=== PATIENT | male | born 1975 | race Caucasian/White ===

== ENCOUNTER 2016-05-18 10:48 | Inpatient (IN) | payer MEDICAID ==
[~2016-05-18] VITALS: Ht 157.5 cm; Wt 62.0 kg
[2016-05-18 10:55] VITALS: Ht 157.5 cm; Wt 62.0 kg
[2016-05-18] MEDS ORDERED: METF1000 PO (11:12)
[2016-05-18] MEDS ORDERED: FUROSEMIDE 20 MG INJ IV ONE (11:30)
--- NOTE | 2016-05-18 12:14 | RADRPT ---
PROCEDURE: XR Chest. CLINICAL INDICATION: Abdominal pain TECHNIQUE: Chest AP portable. COMPARISON: No comparison available. FINDINGS: The mediastinal structures are unremarkable. The heart is normal in size and configuration. The pu lmonary vascularity is normal. The lung vigil are unremarkable. No consolidation is identified. The pleural spaces are unremarkable. The axial skeleton is unremarkable. IMPRESSION: No active intrathoracic disease. RPTAT: HGDB .Yeyo Starr MD, MD Date Time Electronically viewed and signed by .Yeyo Starr MD, MD on 05/18/2016 12:13 .B/
[2016-05-18 12:28] LABS: BASOPHILS % 0.5 % (0.0-2.0); CONDITION 1; EOSINOPHILS # 0.1 10^3/ul (0.0-0.5); HEMATOCRIT 30.8 % (42.0-52.0); HEMOGLOBIN 10.5 g/dl (14.0-18.0); LYMPHOCYTES # 1.3 10^3/ul (0.8-2.9); LYMPHOCYTES % 16.8 % (15.0-51.0); MEAN CORPUSCULAR HEMOGLOBIN 29.1 pg (29.0-33.0); MEAN CORPUSCULAR HGB CONC 34.2 g/dl (32.0-37.0); MEAN CORPUSCULAR VOLUME 85.2 fl (82.0-101.0); MEAN PLATELET VOLUME 10.2 fl (7.4-10.4); MONOCYTE # 0.4 10^3/ul (0.3-0.9); MONOCYTES % 4.9 % (0.0-11.0); NEUTROPHIL # 6.1 10^3/ul (1.6-7.5); NEUTROPHILS % 76.8 % (39.0-77.0); PLATELET COUNT 242 10^3/UL (140-440); RED BLOOD COUNT 3.61 10^6/ul (4.70-6.10); RED CELL DISTRIBUTION WIDTH 13.1 % (11.5-14.5); UNCORRECTED WBC 7.9 10^3/ul (4.8-10.8); WHITE BLOOD COUNT 7.9 10^3/ul (4.8-10.8)
[2016-05-18 12:34] LABS: ALBUMIN 2.9 g/dl (3.3-4.9)
[2016-05-18 12:35] LABS: CHLORIDE 105 mmol/L (97-110); POTASSIUM 5.4 mmol/L (3.5-5.1); SODIUM 140 mmol/L (135-144)
[2016-05-18 12:37] LABS: ALKALINE PHOSPHATASE 108 IU/L (42-121); ANION GAP 13 (8-16); ASPARTATE AMINO TRANSFERASE 25 IU/L (15-46); CARBON DIOXIDE 27 mmol/L (21-31); CREATININE 0.77 mg/dl (0.61-1.24); TOTAL PROTEIN 6.5 g/dl (6.1-8.1)
[2016-05-18 12:38] LABS: ALANINE AMINOTRANSFERASE 30 IU/L (13-69); BLOOD UREA NITROGEN 28 mg/dl (7-20); CALCIUM 9.4 mg/dl (8.4-10.2); GLUCOSE 144 mg/dl (70-220)
[2016-05-18] MEDS ORDERED: ALBUTEROL 0.5% (NEB) 2.5 MG/0.5 ML AMP INH STA (12:45)
[2016-05-18 12:47] LABS: B-TYPE NATRIURETIC PEPTIDE 276 PG/ML (0-125)
[2016-05-18 12:50] LABS: TROPONIN-I < 0.012 ng/ml (0.00-0.12)
[2016-05-18 13:17] VITALS: PULSE 89; TEMP 98.1
[2016-05-18 13:23] LABS: ADD UMIC YES; URINE BILIRUBIN (Dip) NEGATIVE (NEGATIVE); URINE BLOOD (Dip) 2+ (NEGATIVE); URINE COLOR LT. YELLOW (YELLOW); URINE GLUCOSE (Dip) NEGATIVE (NEGATIVE); URINE KETONES (Dip) NEGATIVE (NEGATIVE); URINE LEUKOCYTE ESTERASE (Dip) NEGATIVE (NEGATIVE); URINE NITRITE (Dip) NEGATIVE (NEGATIVE); URINE TOTAL PROTEIN (Dip) 2+ (NEGATIVE); URINE UROBILINOGEN (Dip) 0.2 E.U./dL (0.1-1.0)
--- NOTE | 2016-05-18 13:33 | ERA ---
ER Documentation Chief Complaint Date/Time DATE: 05/18/16 TIME: 13:22 Chief Complaint sob, swelling legs, fatigue x 1 week HPI 41-year-old man referred here by PMD for recent bilateral lower extremity swelling, weakness, dyspnea on exertion and shortness of breath, and decreased urine output. Patient states his new symptoms have been present for about 20 days and complains of about 1 year of gradually decreasing vision. He has a history of poorly controlled diabetes mellitus and denies hypertension. He denies fevers or chills, no new medication, no chest pain, no vomiting or diarrhea, no headache or blurry vision. Patient denies recent travel or sick contacts. ROS All systems reviewed and are negative except as per history of present illness. Medications Home Meds Reported Medications Metformin Hcl* (Metformin Hcl*) 1,000 Mg Tablet, 1000 MG PO WITH BREAKFAST DINNE , #30 TAB 05/18/16 Allergies Allergies: Coded Allergies: No Known Allergy (Unverified , 05/18/16) PMhx/Soc Diabetes mellitus Medical and Surgical Hx: pt denies Surgical Hx History of Surgery: No Hx Neurological Disorder: No Hx Respiratory Disorders: Yes (SOB) Hx Cardiac Disorders: Yes (HTN) Hx Miscellaneous Medical Probl: Yes (DM) Hx Alcohol Use: Yes (Former drinker ) Hx Substance Use: No Hx Tobacco Use: No Smoking Status: Never smoker FmHx Diabetes mellitus and renal disease Family History: diabetes Physical Exam Vitals Vital Signs Date Time Temp Pulse Resp B/P Pulse Ox O2 Delivery O2 Flow Rate FiO2 05/18/16 13:17 98.1 89 18 170/78 100 Room Air 05/18/16 12:53 73 20 99 21 05/18/16 11:15 98.6 74 16 157/75 100 Room Air 05/18/16 10:55 98.1 83 18 168/84 97 Physical Exam GENERAL: Well-developed, well-nourished, well-hydrated, in no apparent distress , looks nontoxic in appearance HEENT: Moist mucous membranes, pink conjunctiva, no cervical spine tenderness or step-off deformities, no goiter, no jaundice or icterus, extraocular movements intact without pain. No submandibular induration, and no pharyngeal erythema NEURO: Alert and oriented 3, cranial nerves II through XII intact bilaterally, pupils equal round reactive to light, no focal deficits or facial asymmetry, sensation intact distally Strength 5/5 in upper and lower extremities bilaterally CARDIAC: Regular rate and rhythm, no murmurs rubs or gallops LUNGS: Clear bilaterally no wheezing crackles or stridor ABDOMEN: Soft nontender, no guarding, no rigidity, no rebound, no psoas sign no obturator sign. Normoactive bowel sounds SKIN: Warm and dry to touch, no abrasions, contusions, or hematomas, no lacerations, no ecchymosis, no target lesions, and without ulcers EXTREMITIES: No clubbing cyanosis, 3+ pitting edema in the lower extremities bilaterally, calves are bilaterally symmetrical, no Homans sign, no popliteal cord sign. Distal pulses equal and bilateral PSYCH: Normal affect without agitation or irritability Result Diagram: 05/18/16 1200 05/18/16 1200 Results 24 hrs Laboratory Tests Test 05/18/16 12:00 Alanine Aminotransferase (ALT/SGPT) 30IU/L Albumin 2.9g/dl Albumin/Globulin Ratio 0.80 Alkaline Phosphatase 108IU/L Anion Gap 13 Aspartate Amino Transf (AST/SGOT) 25IU/L B-Type Natriuretic Peptide 276PG/ML Basophils # 0.010^3/ul Basophils % 0.5% Blood Urea Nitrogen 28mg/dl Calcium Level 9.4mg/dl Carbon Dioxide Level 27mmol/L Chloride Level 105mmol/L Creatinine 0.77mg/dl Direct Bilirubin 0.00mg/dl Eosinophils # 0.110^3/ul Eosinophils % 1.0% Globulin 3.60g/dl Glucose Level 144mg/dl Hematocrit 30.8% Hemoglobin 10.5g/dl Indirect Bilirubin 0.0mg/dl Lipase 476U/L Lymphocytes # 1.310^3/ul Lymphocytes % 16.8% Mean Corpuscular Hemoglobin 29.1pg Mean Corpuscular Hemoglobin Concent 34.2g/dl Mean Corpuscular Volume 85.2fl Mean Platelet Volume 10.2fl Monocytes # 0.410^3/ul Monocytes % 4.9% Neutrophils # 6.110^3/ul Neutrophils % 76.8% Nucleated Red Blood Cells # 0.010^3/ul Nucleated Red Blood Cells % 0.0/100WBC Platelet Count 65935^3/UL Potassium Level 5.4mmol/L Red Blood Count 3.6110^6/ul Red Cell Distribution Width 13.1% Sodium Level 140mmol/L Total Bilirubin 0.0mg/dl Total Protein 6.5g/dl Troponin I < 0.012ng/ml White Blood Count 7.910^3/ul Current Medications Medications (Trade) Dose Ordered Sig/Lucy Route PRN Reason Start Time Stop Time Status Last Admin Dose Admin Furosemide (Lasix) 20 mg ONCE ONCE IV 05/18/16 11:30 05/18/16 11:31 DC 05/18/16 11:44 Albuterol (Proventil 0.5% (Neb)) 10 mg ONCE STAT INH 05/18/16 12:45 05/18/16 12:46 DC 05/18/16 12:51 Procedures/MDM IV line was established patient was placed on monitoring tech rhythm strip revealed a sinus rhythm at about 70 bpm with upright P and T waves. Patient was afebrile. EKG performed, read by me: 73 bpm, normal sinus rhythm, normal axis, no acute ST segment changes, narrow QRS complex, with good R-wave progression in precordial leads. One AP view of the chest performed, read by me reveals no acute infiltrates, normal mediastinum, sharp costophrenic and cardiac borders, no air under the diaphragm. Otherwise unremarkable chest x-ray. CBC was unremarkable, electrolytes revealed increased BUN/creatinine ratio at 28 /0.8, potassium elevated at 5.4, liver function tests were normal except for hypoalbuminemia at 2.9 which is suggestive of acute albuminuria and diabetic nephropathy in this setting. Troponin was negative, BNP was low. For hyperkalemia and lower extremity edema I administered furosemide 60 mg IV, patient also received albuterol 10 mg via nebulizer. Hypertensive nephrosclerosis is also a consideration. Given the patient's recent symptomatology and current concern for worsening renal status I will admit the patient to [facility]. Color Doppler ultrasound of the bilateral lower extremities has also been ordered to rule out DVT, although unlikely. Departure Diagnosis: Primary Impression: Diabetic nephropathy Qualified Code: E11.21 - Diabetic nephropathy associated with type 2 diabetes mellitus Additional Impressions: Hypertension Qualified Code: I10 - Essential hypertension Diabetic retinopathy Qualified Code: E11.319 - Diabetic retinopathy of both eyes associated with type 2 diabetes mellitus, macular edema presence unspecified, unspecified retinopathy severity Peripheral edema Shortness of breath Hyperkalemia Hypoalbuminemia Condition: DEMETRA Gomez MD May 18, 2016 13:33
--- NOTE | 2016-05-18 14:07 | RADRPT ---
PROCEDURE: US Lower extremity Venous. CLINICAL INDICATION: Leg pain and edema. TECHNIQUE: Multiple sonographic images of the bilateral lower extremity deep venous system was obt ained utilizing grayscale, color-flow, compressive sonography and doppler imaging with augmentation. The images were reviewed on a PACS workstation. COMPARISON: None. FINDINGS: There is normal compressibility and flow within the bilateral common femoral, deep femoral, superfic ial femoral, posterior tibial, peroneal and popliteal veins. IMPRESSION: No sonographic evidence for deep venous thrombosis. RPTAT:AAJJ Physician Radha Date Time Electronically viewed and signed by Physician Radha on 05/18/2016 14:07 GARDENIA/
[2016-05-18] MEDS ORDERED: ZOLPIDEM 5 MG TAB PO PRN (17:00)
[2016-05-18] MEDS ORDERED: GLUCOSE GEL 15 GRAM TUBE PO PRN ×2 (17:00)
[2016-05-18] MEDS ORDERED: NACL 0.9% 3 ML SYG IV SCH (17:00)
[2016-05-18] MEDS ORDERED: morphine 2 MG INJ IV PRN (17:00)
[2016-05-18] MEDS ORDERED: HYDROCODONE/APAP (5/325) TAB PO PRN (17:00)
[2016-05-18] MEDS ORDERED: GLUCOSE GEL 15 GRAM TUBE BUCCAL PRN (17:00)
[2016-05-18] MEDS ORDERED: GLUCAGON 1 MG INJ IM PRN (17:00)
[2016-05-18] MEDS ORDERED: ONDANSETRON 4 MG INJ IV PRN (17:00)
[2016-05-18] MEDS ORDERED: DEXTROSE 50% 50 ML SYRINGE IV PRN ×2 (17:00)
[2016-05-18] MEDS ORDERED: ACETAMINOPHEN 325 MG TAB PO PRN (17:00)
[2016-05-18] MEDS: ENOXAPARIN 40 MG/0.4 ML SYG SC SCH (17:39)
[2016-05-18] MEDS: INSULIN ASPART [NOVOLOG] 3 ML PEN SC SCH ×2 (17:49→21:09)
[2016-05-18] MEDS: metFORMIN 500 MG TAB PO SCH (17:56)
--- NOTE | 2016-05-18 18:17 | HP ---
DATE OF ADMISSION: 05/18/2016 CHIEF COMPLAINT: Dizziness and left extremity swelling. HISTORY OF PRESENT ILLNESS: The patient is a 41-year-old male with history egn-pughjmn-hslhhhzwv di abetes. The patient has no PCP. The patient states that for the past several weeks he is noticing lower extremity swelling. He has also been feeling dizzy. This has occurred several times and prese nted to the ED where the patient's potassium was noted to be elevated. Patient reports some blurry vision that he has had for some time now. Also, reports a wound on his foot. He did not check his blood sugar on a regular basis and once again does not have a primary care doctor. He states that w hen he felt dizzy the past several times he did check his blood sugar at that time and was reportedl y only mildly elevated. The patient denies any cardiac history. Denies any strokes in the past. PAST MEDICAL HISTORY: Men-ldyqlrp-vxjcbeloj diabetes. PAST SURGICAL HISTORY: Denies. HOME MEDICATIONS: Metformin. ALLERGIES: NO KNOWN DRUG ALLERGIES. FAMILY HISTORY: Noncontributory. SOCIAL HISTORY: Denies alcohol, tobacco, or drug abuse. REVIEW OF SYSTEMS: A 12-point review of systems negative except that mentioned in the HPI. PHYSICAL EXAMINATION: VITAL SIGNS: Temperature is 98.1, pulse 89, respiratory rate 18, BP 130/78, saturation 100% on room air. GENERAL: No acute distress, alert and oriented. HEENT: Normocephalic, atraumatic. LUNGS: Clear to auscultation. CARDIOVASCULAR: Regular rate and rhythm. ABDOMEN: Nondistended, nontender, soft. EXTREMITIES: No clubbing, cyanosis, 2+ edema noted. Diabetic foot ulcer noted on the right heel. LABORATORIES: White count 7.9, hemoglobin is 10.5, platelets are 242. Chemistry: Sodium is 140, p otassium is 5.4 and BUN is 28. BNP is 276. Lipase was 476. UA 2+ hemoglobin, 2+ protein. DIAGNOSTICS: Chest x-ray shows no active disease. Extremity venous study shows no evidence of DVT. ASSESSMENT AND PLAN: 1. Generalized weakness with dizziness. This could be secondary to labile blood sugars versus auto nomic neuropathy. We will rule out cardiac and vascular etiologies with echo and carotid ultrasound . 2. Hypokalemia, likely secondary to underlying diabetic nephropathy. We will monitor. The patient is status post Lasix in the ER. 3. Diabetes with nephropathy, likely retinopathy, neuropathy and diabetic foot ulcer. The patient does report symptoms of neuropathy, also reports symptoms of diabetic retinopathy. The patient has been told that he needs to follow up with a primary care physician. We will check an A1c. We will put the patient on a sliding scale. Will continue home metformin. Patient advised that he needs to take better care of his diabetes. We will also obtain a dietary consultation. 4. Normocytic anemia, likely chronic disease from underlying diabetes. 5. Diabetic foot ulcer. We will get a podiatry consultation and wound care consultation. 6. Prophylaxis, Lovenox. Dictated By: JATIN GONZALEZ MD BS/NTS Conf#: [id number] DID#: [id number]
[2016-05-18 19:41] VITALS: BP 165/76; RESP 20
--- NOTE | 2016-05-18 20:27 | RADRPT ---
PROCEDURE: Carotid ultrasound CLINICAL INDICATION: Dizziness, carotid bruits TECHNIQUE: Wagoner scale, color doppler, spectral doppler ultrasound of the bilateral carotid and michael tebral arteries. This study indirectly references the measurement of the distal ICA diameter as the denominator for s tenosis measurement. Validated velocity measurements with angiographic measurements, velocity criter ia are extrapolated from diameter data as defined by: *Cartoid artery stenosis: wagoner-scale and Doppl er US diagnosis. Society of Radiologists in Ultrasound Consensus Conference. Radiology 2003; 229: 34 0-346. SRU Consensus Conference Criteria for the Diagnosis of Carotid Artery Stenosis* Degree of Stenosis, % ICA PSV, cm/sec Plaque Estimate, % ICA/CCA PSV Ratio Normal <125 None <2.0 <50 <125 <50 <2.0 50 69 125-230 >50 2.0-4.0 >70 but less than near occlusion >230 >50 <4.0 Near occlusion High, low, or undetectable Visible Variable Total occlusion Undetectable Visible, no detectable lumen Not applicable COMPARISON: No prior studies are available for comparison. FINDINGS: Location Right CCA64 cm/sec Prox ICA 55 cm/sec Mid ICA63 cm/sec Dist ICA64 cm/sec XPD384 cm/sec ICA/CCA1.0 Left CCA94 cm/sec Prox ICA 97 cm/sec Mid TDV786 cm/sec Dist JKO066 cm/sec XDL416 cm/sec ICA/CCA1.3 Plaque burden: No significant plaque is seen. Antegrade flow is seen within the vertebral arteries bilaterally. IMPRESSION: No evidence of a hemodynamically significant carotid stenosis. RPTAT: AADD .Yohan Lafleur MD, Date Time Electronically viewed and signed by .Yohan Lafleur MD, MD on 05/18/2016 20:26 .B/
[2016-05-18 21:20] VITALS: BP 155/64
[2016-05-19] MEDS: ACCUCHECK XX SCH (02:14)
[2016-05-19 06:10] LABS: BASOPHILS % 0.6 % (0.0-2.0); EOSINOPHILS # 0.1 10^3/ul (0.0-0.5); HEMATOCRIT 29.1 % (42.0-52.0); HEMOGLOBIN 9.9 g/dl (14.0-18.0); LYMPHOCYTES # 1.7 10^3/ul (0.8-2.9); LYMPHOCYTES % 23.6 % (15.0-51.0); MEAN CORPUSCULAR HEMOGLOBIN 29.3 pg (29.0-33.0); MEAN CORPUSCULAR HGB CONC 34.2 g/dl (32.0-37.0); MEAN CORPUSCULAR VOLUME 85.9 fl (82.0-101.0); MEAN PLATELET VOLUME 9.8 fl (7.4-10.4); MONOCYTE # 0.5 10^3/ul (0.3-0.9); NEUTROPHIL # 4.8 10^3/ul (1.6-7.5); NEUTROPHILS % 66.8 % (39.0-77.0); PLATELET COUNT 217 10^3/UL (140-440); RED BLOOD COUNT 3.39 10^6/ul (4.70-6.10); UNCORRECTED WBC 7.2 10^3/ul (4.8-10.8); WHITE BLOOD COUNT 7.2 10^3/ul (4.8-10.8)
[2016-05-19 06:12] LABS: POTASSIUM 4.5 mmol/L (3.5-5.1)
[2016-05-19 06:14] LABS: CONDITION 1; CREATININE 0.79 mg/dl (0.61-1.24)
[2016-05-19 06:15] LABS: CALCIUM 8.6 mg/dl (8.4-10.2); PHOSPHORUS 5.3 mg/dl (2.5-4.9)
[2016-05-19 06:16] LABS: MAGNESIUM 1.5 mg/dl (1.7-2.5)
[2016-05-19 07:51] VITALS: BP 162/79; RESP 22
[2016-05-19] MEDS: metFORMIN 500 MG TAB PO SCH ×2 (08:04→17:35)
[2016-05-19] MEDS ORDERED: INFLUENZA VIRUS VACCINE 0.5 ML (DISPENSING) IM* ONE (09:00)
[2016-05-19] MEDS: INSULIN ASPART [NOVOLOG] 3 ML PEN SC SCH ×4 (09:24→20:52)
[2016-05-19] MEDS ORDERED: MAGNESIUM SULFATE 3 GM in SOD CHLORIDE 0.9% 100 ML IVPB ONE (11:00)
--- NOTE | 2016-05-19 11:56 | CONS ---
DATE OF ADMISSION: 05/18/2016 DATE OF CONSULTATION: TYPE OF CONSULTATION: Nephrology. REASON FOR CONSULTATION: Hyperkalemia, proteinuria. PHYSICIAN REQUESTING CONSULT: Dr. Hitchcock HISTORY OF PRESENT ILLNESS: This is a 41-year-old male with a past medical history of diabetes, his tory of hypertension who presents to [facility] with complaints of lower extremity swelling, dizziness, shortness of breath. The patient states over the last several weeks he has mcbride d increasing lower extremity swelling with intermittent dizziness. The patient also describes some dyspnea on exertion during this period of time. The patient's symptoms did not improve and they have been progressively worsening. The patient also reports a wound on his foot that has not been impro ving, as a result he came into [facility] for evaluation. Upon arrival, the patie nt was noted to be hypertensive, noted to have lower extremity edema. The patient was given diureti c therapy and admitted to med/surg for evaluation. In terms of the patient's renal history, the patient has no prior history of chronic kidney disease. He does have a history of retinopathy and denies any neuropathy. The patient denies further any f rothy urine, any rashes, any hemoptysis, hemetemesis, hematochezia. PAST MEDICAL HISTORY: As stated above, history of hypertension, history of diabetes. PAST SURGICAL HISTORY: None. MEDICATIONS: Metformin. ALLERGIES: NO KNOWN DRUG ALLERGIES. FAMILY HISTORY: Noncontributory. SOCIAL HISTORY: Does not drink, smoke or do drugs. REVIEW OF SYSTEMS: A 14-point review of systems was conducted. Pertinent positives stated in HPI, otherwise negative. PHYSICAL EXAMINATION: VITAL SIGNS: Blood pressure 162/79, respirations 22, pulse 74, temperature 99.2. HEENT: Head is normocephalic. NECK: Supple. HEART: Regular rate. LUNGS: Show diminished breath sounds at the base. ABDOMEN: Soft, nontender to palpation. No rebound or guarding. EXTREMITIES: Negative for clubbing, cyanosis. Positive edema. DERMATOLOGIC: No rashes. MUSCULOSKELETAL: The patient has a right heel wound. NEUROLOGIC: No focal deficits. LABORATORY DATA: Shows white count 7.2, hemoglobin 9.9, hematocrit 29.1, platelet count 217. Sodiu m 138, potassium 4.5, chloride 106, BUN 24, creatinine 1.79. Hemoglobin A1c 11.2, magnesium 1.5, al bumin 2.9, triglycerides 160. Urinalysis shows +2 proteinuria. IMAGING STUDIES: Chest x-ray shows no acute findings. ASSESSMENT AND PLAN: This is a 41-year-old male who presents with: 1. Azotemia. Etiology is multifactorial secondary to hypercatabolic state due to wound infection, possible recent diuretic therapy. At this point, will continue to monitor closely, monitor renal fu nction on diuretics. 2. Hyperkalemia. Etiology is possibly spurious. The patient's repeat potassium levels have normali zed. We will continue to observe. 3. Proteinuria. Concerning for possible underlying diabetic nephropathy. The patient's hemoglobin A1c is 11.6. Poorly controlled diabetic. Plan at this point is to quantify the patient's proteinur ia by checking a protein/creatinine ratio and albumin/creatinine ratio. We will recommend otherwise good glycemic control. Will consider starting the patient on SUKUMAR inhibitor. 4. Hypertensive urgency. Continue current blood pressure regimen. Will consider starting SUKUMAR inhi bitor. Continue Lasix. 5. Volume overload. Lower extremity edema, underlying etiology is unclear. Will rule out nephroti c syndrome as patient has diabetes, is hypoalbuminemic and has dyslipidemia. Will check a protein/c reatinine ratio and albumin/creatinine ratio. Will start the patient on diuretic therapy. May consi anabella starting SUKUMAR inhibitor. 6. Diabetes, uncontrolled. Continue current insulin regimen. 7. Dyslipidemia. Continue statin therapy. 8. Diabetic foot ulcer. Continue current medical management. Continue antibiotic therapy. 9. Anemia. Continue to monitor hemoglobin and hematocrit levels. Thank you, Dr. Hitchcock, for this interesting consult. It will be a pleasure to follow patient with you throughout the hospital course. Dictated By: RUSLAN PAYAN DO NR/NTS Conf#: [id number] DID#: [id number] CC: JATIN HITCHCOCK MD;*End*
[2016-05-19] MEDS: FUROSEMIDE 20 MG TAB PO SCH (12:40)
[2016-05-19] MEDS: ENOXAPARIN 40 MG/0.4 ML SYG SC SCH (12:52)
--- NOTE | 2016-05-19 14:10 | PN ---
Date/Time of Note Date/Time of Note DATE: 05/19/16 TIME: 14:03 Assessment/Plan VTE Prophylaxis VTE Prophylaxis Intervention: LMWH Lines/Catheters IV Catheter Type (from Nrs): Saline Lock Assessment/Plan Chief Complaint/Hosp Course 1. Generalized weakness with dizziness likely 2/2 labile blood sugars and/or autonomic neuropathy -Carotid US is nl, F/U on Echo 2. Hyperkalemia-resolved -Renal consult appreciated 3. Diabetes with nephropathy, likely retinopathy, neuropathy and diabetic foot ulcer -Podiatry and Renal consults and has been advised to FU with [facility] as an out-pt -A!c at 11.2, DM educator and Dietary consults -Patient advised that he needs to take better care of his diabetes 4. Normocytic anemia, likely chronic disease from underlying diabetes Prophylaxis- Lovenox Problems: Subjective 24 Hr Interval Summary Constitutional: no complaints Exam/Review of Systems Vital Signs Vitals Vital Signs Date Time Temp Pulse Resp B/P Pulse Ox O2 Delivery O2 Flow Rate FiO2 05/19/16 07:51 99.2 74 22 162/79 96 05/18/16 13:17 Room Air 05/18/16 12:53 21 Intake and Output 05/18/16 05/18/16 05/19/16 15:00 23:00 07:00 Intake Total 700 ml Output Total 700 ml 900 ml Balance -700 ml -200 ml Exam Constitutional: alert, oriented Respiratory: clear to auscultation Cardiovascular: regular rate and rhythm Gastrointestinal: soft, No distended Musculoskeletal: No nl extremities to inspection Results Result Diagram: 05/19/16 0510 05/19/16 0510 Results 24 hrs Laboratory Tests Test 05/18/16 17:47 05/18/16 21:01 05/19/16 02:12 05/19/16 05:10 Bedside Glucose 133 187 134 Anion Gap 9 Basophils # 0.0 Basophils % 0.6 Blood Urea Nitrogen 24 H Calcium Level 8.6 Carbon Dioxide Level 28 Chloride Level 106 Cholesterol Level 232 H Cholesterol/HDL Ratio 7.0 Creatinine 0.79 Eosinophils # 0.1 Eosinophils % 2.0 Glucose Level 126 HDL Cholesterol 33 Hematocrit 29.1 L Hemoglobin 9.9 L Hemoglobin A1c 11.2 H LDL Cholesterol, Calculated 167 Lipase 104 Lymphocytes # 1.7 Lymphocytes % 23.6 Magnesium Level 1.5 L Mean Corpuscular Hemoglobin 29.3 Mean Corpuscular Hemoglobin Concent 34.2 Mean Corpuscular Volume 85.9 Mean Platelet Volume 9.8 Monocytes # 0.5 Monocytes % 7.0 Neutrophils # 4.8 Neutrophils % 66.8 Nucleated Red Blood Cells # 0.0 Nucleated Red Blood Cells % 0.0 Phosphorus Level 5.3 H Platelet Count 217 Potassium Level 4.5 Red Blood Count 3.39 L Red Cell Distribution Width 13.0 Sodium Level 138 Triglycerides Level 160 H White Blood Count 7.2 Test 05/19/16 07:48 05/19/16 12:07 05/19/16 12:25 Bedside Glucose 153 195 Parathyroid Hormone (Intact) Medications Medications Current Medications Ondansetron HCl (Zofran Inj) 4 mg Q6H PRN IV NAUSEA AND/OR VOMITING; Start at 17:00 Acetaminophen (Tylenol Tab) 650 mg Q6H PRN PO PAIN LEVEL 1-3 OR FEVER; Start at 17:00 Acetaminophen/ Hydrocodone Bitart ([place] (5/325)) 1 tab Q6H PRN PO MODERATE PAIN LEVEL 4-6; Start 05/18/16 at 17:00 Morphine Sulfate (morphine) 2 mg Q4H PRN IV SEVERE PAIN LEVEL 7-10; Start 05/18 at 17:00 Zolpidem Tartrate (Ambien) 5 mg QHS PRN PO SLEEP; Start 05/18/16 at 17:00 Enoxaparin Sodium (Lovenox) 40 mg DAILY SC Last administered on 05/19/16 12:52 ; Admin Dose 40 MG; Start 05/18/16 at 17:00 Diagnostic Test (Pha) (Accucheck) 1 ea 02 XX Last administered on 05/19/16 02: 14; Admin Dose 1 EA; Start 05/19/16 at 02:00 Miscellaneous Information 1 ea NOTE XX ; Start 05/18/16 at 17:00 Glucose (Glutose) 15 gm Q15M PRN PO DECREASED GLUCOSE; Start 05/18/16 at 17:00 Glucose (Glutose) 22.5 gm Q15M PRN PO DECREASED GLUCOSE; Start 05/18/16 at 17: 00 Dextrose (D50w Syringe) 25 ml Q15M PRN IV DECREASED GLUCOSE; Start 05/18/16 at 17:00 Dextrose (D50w Syringe) 50 ml Q15M PRN IV DECREASED GLUCOSE; Start 05/18/16 at 17:00 Glucagon (Glucagen) 1 mg Q15M PRN IM DECREASED GLUCOSE; Start 05/18/16 at 17:00 Glucose (Glutose) 15 gm Q15M PRN BUCCAL DECREASED GLUCOSE; Start 05/18/16 at 17 :00 Atorvastatin Calcium (Lipitor) 40 mg HS PO ; Start 05/19/16 at 21:00 Furosemide (Lasix) 20 mg DAILY PO Last administered on 05/19/16t 12:40; Admin Dose 20 MG; Start 05/19/16 at 12:00 JATIN GONZALEZ May 19, 2016 14:10
--- NOTE | 2016-05-19 14:34 | RADRPT ---
PROCEDURE: Retroperitoneal US. CLINICAL INDICATION: proteinuria TECHNIQUE: Multiple sonographic images of the kidneys and retroperitoneum were obtained. The imag es were reviewed on a PACS workstation. COMPARISON: No prior studies are available for comparison. FINDINGS: The kidneys are normal in size, contour, cortical thickness and cortical echogenicity. The right kidney measures 11.6 cm. The left kidney measures 11.2 cm. No kidney stones are visualized. There is no evidence for hydronephrosis. The urinary bladder is normal. RPTAT: AA IMPRESSION: Unremarkable retroperitoneal ultrasound. .Hardy Arroyo MD, MD Date Time Electronically viewed and signed by .Hardy Arroyo MD, on 05/19/2016 14:34 .S/
--- NOTE | 2016-05-19 14:51 | RADRPT ---
Echocardiogram Report Patient Name: GRIS VILLAGRAN Gender: Male Date: 1975 Study Date: 19-May-2016 Conservation Engineer: Juanis Chung [facility] Location: [id number] Ref. Physician: JATIN GONZALEZ Quality: Good Procedures: Transthoracic echocardiogram with complete 2D, M-Mode, and doppler examination. Indications: Dizziness. 2D/M Mode Doppler Measurement Value Normal Ranges Measurement Value Normal Ranges LVIDd 2D 4.9 3.5 - 5.6 cm AV Peak Travis 1.4 m/sec LVIDs 2D 3.2 2.1 - 4.1 cm AV Peak PG 8.3 mmHg LVPWd 2D 1.1 0.6 - 1.1 cm LVOT Peak Travis 0.9 m/sec IVSd 2D 1.1 0.6 - 1.1 cm LVOT Peak PG 3.2 mmHg AoR Diam 2D 2.5 2.0 - 3.7 cm MV E Peak Travis 0.9 m/sec EDV 2D 112.9 cm3 MV A Peak Travis 0.9 m/sec ESV 2D 32.5 cm3 MV E/A 0.9 LA Dimen 2D 4.4 2.3 - 4.0 cm MV Decel Time 200 msec MV Decel Morton 4 MV E/A 0.9 Findings Left Ventricle: Normal left ventricular systolic function. Normal left ventricular cavity size. Mild concentric left ventricular hypertrophy. Ejection fraction is visually estimated at 65 %. Tissue Doppler/Mitral Doppler indices are consistent with impaired relaxation (Stage I diastolic dysfunction). Right Ventricle: Normal right ventricular size. Normal right ventricular systolic function. Left Atrium: There is mild enlargement of left atrium. Right Atrium: The right atrium is normal in size. Mitral Valve: Mild mitral valve regurgitation. Aortic Valve: Normal appearance of the aortic valve. No significant aortic stenosis or insufficiency. Tricuspid Valve: Unable to obtain RVSP due to minimal presence of tricuspid regurgitation. Pulmonic Valve: Normal pulmonic valve appearance. Pericardium: Normal pericardium with no significant pericardial effusion. Aorta: Normal aortic root. IVC: Normal size and normal respiratory collapse consistent with normal right atrial pressure. Conclusions 1.Normal left ventricular systolic function. Mild concentric left ventricular hypertrophy. Ejection fraction is visually estimated at 65 %. Tissue Doppler/Mitral Doppler indices are consistent with impaired relaxation (Stage I diastolic dysfunction). 2.No significant valvular stenosis or regurgitation seen. 3.Unable to obtain RVSP due to minimal presence of tricuspid regurgitation. RA pressure is 3 mmHg. Electronically Signed By: Milo Dutta 19-May-2016 14:50:01 -0800 Patient Name: GRIS VILLAGRAN Study Date: 19-May-2016 [id number]
[2016-05-19 19:42] VITALS: BP 159/76; RESP 20
[2016-05-19] MEDS ORDERED: ATORVASTATIN 40 MG TAB PO SCH (21:00)
--- NOTE | 2016-05-19 23:47 | CONS ---
Date/Time of Note Date/Time of Note DATE: 05/19/16 TIME: 23:47 Consultation Date/Type/Reason Admit Date/Time May 18, 2016 at 12:32 Constitutional: no complaints Social History Smoking Status: Never smoker Exam/Review of Systems Vital Signs Vitals Vital Signs Date Time Temp Pulse Resp B/P Pulse Ox O2 Delivery O2 Flow Rate FiO2 05/19/16 19:42 98.3 71 20 159/76 95 05/18/16 13:17 Room Air 05/18/16 12:53 21 Intake and Output 05/18/16 05/18/16 05/19/16 15:00 23:00 07:00 Intake Total 700 ml Output Total 700 ml 900 ml Balance -700 ml -200 ml Results Result Diagram: 05/19/16 0510 05/19/16 0510 Results 24 hrs Laboratory Tests Test 05/19/16 02:12 05/19/16 05:10 05/19/16 07:48 05/19/16 12:07 Bedside Glucose 134 153 195 Anion Gap 9 Basophils # 0.0 Basophils % 0.6 Blood Urea Nitrogen 24 H Calcium Level 8.6 Carbon Dioxide Level 28 Chloride Level 106 Cholesterol Level 232 H Cholesterol/HDL Ratio 7.0 Creatinine 0.79 Eosinophils # 0.1 Eosinophils % 2.0 Glucose Level 126 HDL Cholesterol 33 Hematocrit 29.1 L Hemoglobin 9.9 L Hemoglobin A1c 11.2 H LDL Cholesterol, Calculated 167 Lipase 104 Lymphocytes # 1.7 Lymphocytes % 23.6 Magnesium Level 1.5 L Mean Corpuscular Hemoglobin 29.3 Mean Corpuscular Hemoglobin Concent 34.2 Mean Corpuscular Volume 85.9 Mean Platelet Volume 9.8 Monocytes # 0.5 Monocytes % 7.0 Neutrophils # 4.8 Neutrophils % 66.8 Nucleated Red Blood Cells # 0.0 Nucleated Red Blood Cells % 0.0 Phosphorus Level 5.3 H Platelet Count 217 Potassium Level 4.5 Red Blood Count 3.39 L Red Cell Distribution Width 13.0 Sodium Level 138 Triglycerides Level 160 H White Blood Count 7.2 Test 05/19/16 12:25 05/19/16 17:34 05/19/16 20:51 Parathyroid Hormone (Intact) Bedside Glucose 140 153 Medications Medications Current Medications Ondansetron HCl (Zofran Inj) 4 mg Q6H PRN IV NAUSEA AND/OR VOMITING; Start at 17:00 Acetaminophen (Tylenol Tab) 650 mg Q6H PRN PO PAIN LEVEL 1-3 OR FEVER; Start at 17:00 Acetaminophen/ Hydrocodone Bitart ([place] (5/325)) 1 tab Q6H PRN PO MODERATE PAIN LEVEL 4-6; Start 05/18/16 at 17:00 Morphine Sulfate (morphine) 2 mg Q4H PRN IV SEVERE PAIN LEVEL 7-10; Start 05/18 at 17:00 Zolpidem Tartrate (Ambien) 5 mg QHS PRN PO SLEEP; Start 05/18/16 at 17:00 Enoxaparin Sodium (Lovenox) 40 mg DAILY SC Last administered on 05/19/16 12:52 ; Admin Dose 40 MG; Start 05/18/16 at 17:00 Diagnostic Test (Pha) (Accucheck) 1 ea 02 XX Last administered on 05/19/16 02: 14; Admin Dose 1 EA; Start 05/19/16 at 02:00 Miscellaneous Information 1 ea NOTE XX ; Start 05/18/16 at 17:00 Glucose (Glutose) 15 gm Q15M PRN PO DECREASED GLUCOSE; Start 05/18/16 at 17:00 Glucose (Glutose) 22.5 gm Q15M PRN PO DECREASED GLUCOSE; Start 05/18/16 at 17: 00 Dextrose (D50w Syringe) 25 ml Q15M PRN IV DECREASED GLUCOSE; Start 05/18/16 at 17:00 Dextrose (D50w Syringe) 50 ml Q15M PRN IV DECREASED GLUCOSE; Start 05/18/16 at 17:00 Glucagon (Glucagen) 1 mg Q15M PRN IM DECREASED GLUCOSE; Start 05/18/16 at 17:00 Glucose (Glutose) 15 gm Q15M PRN BUCCAL DECREASED GLUCOSE; Start 05/18/16 at 17 :00 Atorvastatin Calcium (Lipitor) 40 mg HS PO Last administered on 05/19/16 20:52 ; Admin Dose 40 MG; Start 05/19/16 at 21:00 Furosemide (Lasix) 20 mg DAILY PO Last administered on 05/19/16 12:40; Admin Dose 20 MG; Start 05/19/16 at 12:00 LACHELLE MORRIS DPM May 19, 2016 23:47
[2016-05-20] MEDS: ACCUCHECK XX SCH (02:00)
[2016-05-20 06:46] LABS: POTASSIUM 4.3 mmol/L (3.5-5.1)
[2016-05-20 06:49] LABS: CREATININE 0.74 mg/dl (0.61-1.24); PHOSPHORUS 4.6 mg/dl (2.5-4.9)
[2016-05-20 06:50] LABS: CALCIUM 8.6 mg/dl (8.4-10.2); MAGNESIUM 1.8 mg/dl (1.7-2.5)
[2016-05-20 06:51] LABS: BASOPHILS % 0.6 % (0.0-2.0); EOSINOPHILS # 0.1 10^3/ul (0.0-0.5); EOSINOPHILS % 2.2 % (0.0-7.0); HEMATOCRIT 28.6 % (42.0-52.0); HEMOGLOBIN 9.9 g/dl (14.0-18.0); LYMPHOCYTES # 1.4 10^3/ul (0.8-2.9); LYMPHOCYTES % 21.2 % (15.0-51.0); MEAN CORPUSCULAR HEMOGLOBIN 29.5 pg (29.0-33.0); MEAN CORPUSCULAR HGB CONC 34.6 g/dl (32.0-37.0); MEAN CORPUSCULAR VOLUME 85.3 fl (82.0-101.0); MEAN PLATELET VOLUME 10.3 fl (7.4-10.4); MONOCYTE # 0.5 10^3/ul (0.3-0.9); MONOCYTES % 7.9 % (0.0-11.0); NEUTROPHIL # 4.6 10^3/ul (1.6-7.5); NEUTROPHILS % 68.1 % (39.0-77.0); PLATELET COUNT 212 10^3/UL (140-440); RED BLOOD COUNT 3.36 10^6/ul (4.70-6.10); RED CELL DISTRIBUTION WIDTH 13.1 % (11.5-14.5); UNCORRECTED WBC 6.7 10^3/ul (4.8-10.8); WHITE BLOOD COUNT 6.7 10^3/ul (4.8-10.8)
[2016-05-20 07:14] LABS: CONDITION 1
[2016-05-20 07:53] VITALS: BP 142/76; RESP 18
[2016-05-20] MEDS: INSULIN ASPART [NOVOLOG] 3 ML PEN SC SCH ×2 (08:15→12:19)
[2016-05-20] MEDS: metFORMIN 500 MG TAB PO SCH (08:27)
[2016-05-20] MEDS: FUROSEMIDE 20 MG TAB PO SCH (08:28)
[2016-05-20] MEDS: ENOXAPARIN 40 MG/0.4 ML SYG SC SCH (08:40)
--- NOTE | 2016-05-20 09:48 | PN ---
DATE: 05/20/2016 SUBJECTIVE: The patient is stable, no acute events overnight. No fevers, chills, nausea, vomiting, no shortness of breath. OBJECTIVE: VITAL SIGNS: Blood pressure is 142/76, respiration 18, pulse 71, temperature 98.2. HEENT: Head is normocephalic. NECK: Supple. HEART: Regular rate. LUNGS: Show diminished breath sounds at base. ABDOMEN: Soft, nontender to palpation without rebound or guarding. EXTREMITIES: Negative for clubbing, cyanosis. Trace edema. DERMATOLOGIC: No rashes. MUSCULOSKELETAL: No joint effusions. NEUROLOGIC: No change in exam. MEDICATIONS: Have been reviewed. LABORATORY DATA: Shows sodium 137, potassium 4.3, chloride 105, BUN 23, creatinine 0.74. White cou nt 6.7, hemoglobin 9.9, hematocrit 29.6, platelet count is 212. The patient's urine protein creatin ine ratio is currently pending. Renal ultrasound shows no acute findings. ASSESSMENT AND PLAN: 1. Azotemia. Etiology may be secondary to hypercatabolic state, diuretic therapy. Renal is improv ing. Continue to monitor. 2. Hyperkalemia, resolved. 3. Proteinuria. The patient is being evaluated for diabetic nephropathy. A protein/creatinine rat io and microalbumin/creatinine ratio is currently pending. Will continue to monitor. Otherwise, co ntinue disease factor modification, good glycemic control. May consider starting an SUKUMAR inhibitor. 4. Hypertension urgency. The patient's blood pressure is improving. Will continue to monitor. Wi ll start the patient on low-dose lisinopril 10 mg daily. 5. Diabetes . Continue statin therapy. 6. Volume overload. The patient has no lower extremity edema, etiology is unclear. The patient is being ruled out for nephrotic syndrome as he has underlying diabetes. As stated above, a protein/c reatinine ratio and albumin/creatinine ratio is pending. Continue current diuretic regimen. SUKUMAR in hibitor will be started. Will monitor renal function closely. 7. Diabetic foot ulcer. Continue current medical management. Continue antibiotics. Followup with surgery. 8. Anemia. Continue to monitor hemoglobin and hematocrit levels. Dictated By: RUSLAN CORRAL/CHUCK Conf#: [id number] DID#: [id number]
--- NOTE | 2016-05-20 14:19 | PDOCDIS ---
Discharge Instructions CONDITION Patient Condition: Good HOME CARE INSTRUCTIONS: Special Diet: LOW CARB ACTIVITY: Activity Restrictions: No Restrictions FOLLOW UP/APPOINTMENTS Appointments F/U WITH A PCP IN 1-2 WEEKS, F/U WITH DR LACHELLE MORRIS OF PODIATRY AT [facility], PLEASE CALL FOR AN APPOINTMENT JATIN GONZALEZ May 20, 2016 14:19
[2016-05-20] MEDS ORDERED: GLIP5TAB13 PO (14:20)
[2016-05-20 18:41] LABS: ADD UMIC YES; URINE BILIRUBIN (Dip) NEGATIVE (NEGATIVE); URINE BLOOD (Dip) 2+ (NEGATIVE); URINE COLOR LT. YELLOW (YELLOW); URINE GLUCOSE (Dip) NEGATIVE (NEGATIVE); URINE KETONES (Dip) NEGATIVE (NEGATIVE); URINE LEUKOCYTE ESTERASE (Dip) NEGATIVE (NEGATIVE); URINE NITRITE (Dip) NEGATIVE (NEGATIVE); URINE TOTAL PROTEIN (Dip) 2+ (NEGATIVE); URINE UROBILINOGEN (Dip) 0.2 E.U./dL (0.1-1.0)
[2016-05-20 19:00] LABS: BACTERIA,URINE MODERATE
--- NOTE | 2016-05-21 07:25 | DS ---
DATE OF ADMISSION: 05/18/2016 DATE OF DISCHARGE: 05/20/2016 DISCHARGE DIAGNOSES: 1. Dizziness, likely secondary to autonomic neuropathy from diabetes versus labile blood sugars. N ow resolved. Cardiac workup was negative. 2. Diabetes, uncontrolled, with early nephropathy, retinopathy and diabetic ulcer. He was seen by nephrology and podiatry. The patient needs a followup with his PCP upon discharge, as well as with Dr. Ortez of [facility]. The patient was also given additional diabetic medication. HOSPITAL COURSE: The patient is a 41-year-old male with a history of poorly controlled diabetes. T he patient does not follow up with any PCP. The patient presented with dizziness and lower extremit y swelling. The patient's main complaint was the dizziness. Carotid Doppler study showed no signif icant findings. 2D echo showed no significant findings. This was felt to be secondary to autonomic neuropathy versus labile blood sugars or high blood sugars. The patient's A1c was 11.2. The patie nt also had some hyperkalemia and elevated alkaline phosphatase. He was seen by nephrology. The pat ient was recommended to be more diligent about his diabetes visits. Advised on dietary recommendati ons and was told that he needs to decrease his carbohydrate intake. The patient was seen by the pod iatrist. He does have a diabetic foot ulcer. Local wound care was done and the patient was told to follow up with Dr. Ortez of podiatry at [facility]. The patient's sugars were controlled in-house. The patient had no further episodes of dizziness. The patient does have peripheral neuropathy as well f rom diabetes. On the day of discharge the patient's vital signs were stable. He had no acute compl aints. Questions were answered. CONDITION ON DISCHARGE: Stable. DISPOSITION: To home. MEDICATIONS: 1. The patient is to continue his home metformin. 2. The patient was also given a prescription for Glipizide 5 mg with breakfast. FOLLOWUP: The patient is to follow up with his PCP in 1 to 2 weeks and he is to follow up Dr. Clotilde ewing in podiatry at [facility]. Greater than 30 minutes was spent coordinating the discharge on this patient. Dictated By: JATIN GONZALEZ MD BS/NTS Conf#: [id number] DID#: [id number]
[2016-05-21] MEDS ORDERED: LISINOPRIL 10 MG TAB PO SCH (09:00)
[2016-05-23 15:38] LABS: MICROALBUMIN 177.4 mg/dL
== END 2016-05-20 17:30 | disposition home or self-care (01) | DRG 699 ==
LOC: E/R 10:48 → MS2 12:32
PROVIDERS: ADMIT Internal Medicine; ATTEND Internal Medicine
DX: E11.21 Type 2 diabetes mellitus with diabetic nephropathy (principal); L97.419 Non-pressure chronic ulcer of right heel and midfoot with unspecified severity; E11.40 Type 2 diabetes mellitus with diabetic neuropathy, unspecified; E11.621 Type 2 diabetes mellitus with foot ulcer; E11.65 Type 2 diabetes mellitus with hyperglycemia; E11.319 Type 2 diabetes mellitus with unspecified diabetic retinopathy without macular edema; E87.5 Hyperkalemia; E78.5 Hyperlipidemia, unspecified; E87.79 Other fluid overload; R80.8 Other proteinuria; R74.8 Abnormal levels of other serum enzymes; R42 Dizziness and giddiness; I16.0 Hypertensive urgency; I10 Essential (primary) hypertension; D64.9 Anemia, unspecified; D63.8 Anemia in other chronic diseases classified elsewhere
CPT/HCPCS: 36415; 71010; 76775; 80048; 80053; 80061; 81001; 81003; 82043; 82306; 82962; 83036; 83690; 83735; 83880; 83970; 84100; 84155; 84300; 84484; 85025; 87086; 90686; 93005; 93306; 93880; 93923; 94644; 96374; J1940; J1650; J1815; J3475

== ENCOUNTER 2016-08-11 11:36 | Emergency (ER) | payer MEDICAID ==
[~2016-08-11] VITALS: Ht 167.6 cm; Wt 56.9 kg
[~2016-08-11 11:36] MED LIST: GLIP5TAB13 PO; METF1000 PO
[2016-08-11 11:39] VITALS: Ht 167.6 cm; Wt 56.9 kg
[2016-08-11] MEDS ORDERED: SOD CHLORIDE 0.9% 1,000 ML IV STA ×2 (11:52→12:02)
[2016-08-11 12:06] LABS: ADD SCAN DIFF NO
[2016-08-11 12:28] LABS: ALANINE AMINOTRANSFERASE 33 IU/L (13-69); ALKALINE PHOSPHATASE 105 IU/L (42-121); ANION GAP 9 (8-16); ASPARTATE AMINO TRANSFERASE 22 IU/L (15-46); BLOOD UREA NITROGEN 36 mg/dl (7-20); CALCIUM 9.1 mg/dl (8.4-10.2); CARBON DIOXIDE 26 mmol/L (21-31); CHLORIDE 105 mmol/L (97-110); CREATININE 0.86 mg/dl (0.61-1.24); GLUCOSE 165 mg/dl (70-220); SODIUM 135 mmol/L (135-144)
[2016-08-11 12:29] LABS: ALBUMIN 3.3 g/dl (3.3-4.9); ALBUMIN/GLOBULIN RATIO 0.86; BASOPHILS % 0.4 % (0.0-2.0); BILIRUBIN,INDIRECT 0.2 mg/dl (0-1.1); BILIRUBIN,TOTAL 0.2 mg/dl (0.2-1.3); EOSINOPHILS # 0.1 10^3/ul (0.0-0.5); EOSINOPHILS % 1.3 % (0.0-7.0); HEMATOCRIT 33.8 % (42.0-52.0); HEMOGLOBIN 11.5 g/dl (14.0-18.0); LYMPHOCYTES # 1.3 10^3/ul (0.8-2.9); LYMPHOCYTES % 13.1 % (15.0-51.0); MEAN CORPUSCULAR HEMOGLOBIN 29.2 pg (29.0-33.0); MEAN CORPUSCULAR VOLUME 85.8 fl (82.0-101.0); MEAN PLATELET VOLUME 11.4 fl (7.4-10.4); MONOCYTE # 0.5 10^3/ul (0.3-0.9); MONOCYTES % 5.3 % (0.0-11.0); NEUTROPHILS % 79.6 % (39.0-77.0); PLATELET COUNT 313 10^3/UL (140-415); RED BLOOD COUNT 3.94 10^6/ul (4.70-6.10); RED CELL DISTRIBUTION WIDTH 12.8 % (11.5-14.5); TOTAL PROTEIN 7.1 g/dl (6.1-8.1); WHITE BLOOD COUNT 10.1 10^3/ul (4.8-10.8)
[2016-08-11 12:38] LABS: ADD UMIC YES; URINE BILIRUBIN (Dip) NEGATIVE (NEGATIVE); URINE BLOOD (Dip) 2+ (NEGATIVE); URINE COLOR YELLOW (YELLOW); URINE GLUCOSE (Dip) NEGATIVE (NEGATIVE); URINE KETONES (Dip) NEGATIVE (NEGATIVE); URINE LEUKOCYTE ESTERASE (Dip) NEGATIVE (NEGATIVE); URINE NITRITE (Dip) NEGATIVE (NEGATIVE); URINE TOTAL PROTEIN (Dip) 4+ (NEGATIVE); URINE UROBILINOGEN (Dip) 0.2 E.U./dL (0.1-1.0)
[2016-08-11 12:51] LABS: TROPONIN-I < 0.012 ng/ml (0.00-0.12)
[2016-08-11 12:52] LABS: POTASSIUM 5.4 mmol/L (3.5-5.1)
[2016-08-11 13:23] LABS: BACTERIA,URINE FEW
--- NOTE | 2016-08-11 13:36 | ERD ---
ER Documentation Chief Complaint Date/Time DATE: 08/11/16 TIME: 13:33 Chief Complaint generalized weakness and syncope everyday for 20 days HPI This is a 41-year-old male who presents to the emergency room for evaluation of generalized weakness. This patient states that he has been feeling weak for approximately 1 month. He states that he almost faints after he walks 2 miles every day, but denies any actual loss of consciousness. He denies any chest pain or shortness of breath at this time. He was seen by his primary care physician who stated the patient should come to the emergency room for "vitamins " ROS All systems reviewed and are negative except as per history of present illness. Medications Home Meds Active Scripts Glipizide* (Glipizide*) 5 Mg Tablet, 5 MG PO AC BREAKFAST, #60 TAB Prov:JATIN GONZALEZ 05/20/16 Reported Medications Metformin Hcl* (Metformin Hcl*) 1,000 Mg Tablet, 1000 MG PO WITH BREAKFAST DINNE , #30 TAB 05/18/16 Allergies Allergies: Coded Allergies: No Known Allergy (Unverified , 08/11/16) PMhx/Soc History of Surgery: No Anesthesia Reaction: No Hx Neurological Disorder: No Hx Respiratory Disorders: No Hx Cardiac Disorders: Yes (HTN) Hx Miscellaneous Medical Probl: No Hx Alcohol Use: Yes Hx Substance Use: No Hx Tobacco Use: No Physical Exam Vitals Vital Signs Date Time Temp Pulse Resp B/P Pulse Ox O2 Delivery O2 Flow Rate FiO2 08/11/16 11:39 98.6 77 18 148/65 100 Physical Exam Const: No acute distress Head: Atraumatic Eyes: Normal Conjunctiva ENT: Normal External Ears, Nose and Mouth. Neck: Full range of motion..~ No meningismus. Resp: Clear to auscultation bilaterally Cardio: Regular rate and rhythm, no murmurs Abd: Soft, non tender, non distended. Normal bowel sounds Skin: No petechiae or rashes Back: No midline or flank tenderness Ext: No cyanosis, or edema Neur: Awake and alert Psych: Normal Mood and Affect Result Diagram: 08/11/16 1157 08/11/16 1157 Results 24 hrs Laboratory Tests Test 08/11/16 11:55 08/11/16 11:57 08/11/16 12:02 Bedside Glucose 158mg/dL White Blood Count 10.110^3/ul Red Blood Count 3.9410^6/ul Hemoglobin 11.5g/dl Hematocrit 33.8% Mean Corpuscular Volume 85.8fl Mean Corpuscular Hemoglobin 29.2pg Mean Corpuscular Hemoglobin Concent 34.0g/dl Red Cell Distribution Width 12.8% Platelet Count 14695^3/UL Mean Platelet Volume 11.4fl Neutrophils % 79.6% Lymphocytes % 13.1% Monocytes % 5.3% Eosinophils % 1.3% Basophils % 0.4% Nucleated Red Blood Cells % 0.0/100WBC Neutrophils # 8.010^3/ul Lymphocytes # 1.310^3/ul Monocytes # 0.510^3/ul Eosinophils # 0.110^3/ul Basophils # 0.010^3/ul Nucleated Red Blood Cells # 0.010^3/ul Sodium Level 135mmol/L Potassium Level 5.4mmol/L Chloride Level 105mmol/L Carbon Dioxide Level 26mmol/L Anion Gap 9 Blood Urea Nitrogen 36mg/dl Creatinine 0.86mg/dl Glucose Level 165mg/dl Calcium Level 9.1mg/dl Total Bilirubin 0.2mg/dl Direct Bilirubin 0.00mg/dl Indirect Bilirubin 0.2mg/dl Aspartate Amino Transf (AST/SGOT) 22IU/L Alanine Aminotransferase (ALT/SGPT) 33IU/L Alkaline Phosphatase 105IU/L Troponin I < 0.012ng/ml Total Protein 7.1g/dl Albumin 3.3g/dl Globulin 3.80g/dl Albumin/Globulin Ratio 0.86 Lipase 158U/L Urine Color YELLOW Urine Clarity CLEAR Urine pH 6.0 Urine Specific [place] >=1.030 Urine Ketones NEGATIVE Urine Nitrite NEGATIVE Urine Bilirubin NEGATIVE Urine Urobilinogen 0.2 E.U./dL Urine Leukocyte Esterase NEGATIVE Urine Microscopic RBC 5-10/HPF Urine Microscopic WBC 5-10/HPF Urine Epithelial Cells FEW Urine Bacteria FEW Urine Hemoglobin 2+ Urine Glucose NEGATIVE% Urine Total Protein 4+ Current Medications Medications (Trade) Dose Ordered Sig/Lucy Route PRN Reason Start Time Stop Time Status Last Admin Dose Admin Sodium Chloride 1,000 ml @ 1,000 mls/hr Q1H STAT IV 08/11/16 11:52 08/11/16 12:51 DC 08/11/16 13:16 Sodium Chloride (NS) 1,000 ml @ 1,000 mls/hr Q1H STAT IV 08/11/16 12:02 08/11/16 13:01 DC 08/11/16 13:48 Procedures/MDM EKG: Rate/Rhythm: [Normal Sinus Rhythm] QRS, ST, T-waves: [No changes consistent w/ acute ischemia] Impression: [No evidence of ischemia or arrhythmia] Chest X-ray 1V Interpreted by me: Soft Tissue: No acute abnormalities Bones: No acute abnormalities Mediastinum/Cardiac Silhouette/Lungs: [No acute abnormalities] This 41-year-old male presents to the emergency room for evaluation of generalized weakness. When I evaluated this patient he was in no acute distress. His EKG is nonischemic, lab work shows mild increase in the specific gravity of urine however no signs of diabetic ketoacidosis. This patient is hemodynamically stable in the emergency room. He was given 2 L of fluids. The patient was asking for a multivitamin will be discharged home at this time with a prescription for multivitamin. I advised him he needs to follow-up with his primary care physician and to decrease his strenuous activity if it is causing him to nearly fainted every day. This patient has a nonischemic EKG and negative troponin Departure Diagnosis: Primary Impression: Multiple complaints Additional Impression: Diabetes, polyneuropathy Condition: Stable JOSIAS TOTH DO August 11, 2016 13:36
[2016-08-11] MEDS ORDERED: MULTI PO (14:47)
--- NOTE | 2016-08-11 14:51 | RADRPT ---
PROCEDURE: XR Chest. CLINICAL INDICATION: chest pain, weakness TECHNIQUE: Single frontal view of the chest was obtained COMPARISON: 05/18/2016 FINDINGS: The heart and mediastinum are within normal limits. The lungs are clear. There is no pleural effusion or pneumothorax. RPTAT: AA IMPRESSION: No acute disease. .Hardy Arroyo MD, MD Date Time Electronically viewed and signed by .Hardy Arroyo MD, on 08/11/2016 14:51 .S/
== END 2016-08-11 15:36 | disposition home or self-care (01) ==
LOC: E/R 11:36
DX: R53.1 Weakness (principal); E11.42 Type 2 diabetes mellitus with diabetic polyneuropathy; I10 Essential (primary) hypertension; R55 Syncope and collapse; Z79.84 Long term (current) use of oral hypoglycemic drugs
CPT/HCPCS: 71010; 80053; 81001; 82962; 83690; 84484; 85025; 93005; J7030; Z7502; 81003